=== PATIENT | male | born 1945 | race Caucasian/White ===

== ENCOUNTER → 2016-07-04 | Outpatient (CLI) | payer OTHER ==
[~2016-07-04] MED LIST: COUMADIN 2 MG TA2 M1 PO; COUMADIN 5 MG TA5 M1 PO; FLECAINIDE ACET50 M1 PO; IBUPROFEN 200200 M1 PO; LOVENOX40 MG/0.4 SUBQ; NAPROSYN500 MG PO; NORCO 10-325 T1 EACH PO; NORCO 5-325 TA1 EACH PO; PACERONE 200 M200 MG PO; PERCOCET 10-321 EACH PO; TOPROL XL25 MG PO
== END ==
LOC: RAD 08:59
DX: R05 Cough (principal)

== ENCOUNTER → 2016-10-20 | Outpatient (CLI) | payer OTHER | LOC: RAD 15:23 | DX: M48.06 Spinal stenosis, lumbar region (principal); M16.11 Unilateral primary osteoarthritis, right hip; M25.78 Osteophyte, vertebrae; M25.561 Pain in right knee ==

== ENCOUNTER → 2016-11-14 | Outpatient (CLI) | payer OTHER ==
[~2016-11-14] MED LIST changes: +PREDNISONE 10 M10 MG PO; +ROBAXIN 750 MG750 M1 PO
== END ==
LOC: MRI 09:27
DX: M47.896 Other spondylosis, lumbar region (principal); M54.16 Radiculopathy, lumbar region; M25.551 Pain in right hip

== ENCOUNTER → 2016-11-17 | Outpatient (CLI) | payer OTHER ==
[2016-11-17 13:16] VITALS: BP 136/82
== END | disposition home or self-care (01) ==
LOC: PAIN 13:04
DX: M54.5 Low back pain (principal); M79.604 Pain in right leg

== ENCOUNTER → 2016-11-21 | Outpatient (CLI) | payer OTHER ==
[~2016-11-21] VITALS: Ht 188 cm; Wt 104.7 kg
--- NOTE | ~2016-11-21 | HPC ---
[address] [address] PAIN MANAGEMENT CONSULTATION Name: NARANJORK LEWIS [id number] Admission: 11/21/16 Attend Phys: Rk Zuniga DO Discharge: Date of : 43 Report #: [id number] THIS REPORT FOR: //name// CC: Rk Esteban MD DATE OF SERVICE: 11/21/2016 CHIEF COMPLAINT: Back pain, right lower extremity pain and paresthesias. HISTORY OF PRESENT ILLNESS: As you know, the patient is a 71-year-old male who was apparently admitted to the hospital last week for low back pain and right lower extremity pain. He underwent a right intraarticular hip injection with Interventional Radiology, then was immediately referred to the pain clinic for evaluation. It was determined at that time the patient was suffering from likely lumbar radicular symptoms, but given the fact that he received an intraarticular hip injection just moments before he reported to the pain clinic, it was determined he would not be able to undergo that injection request. He was given instructions to return to our clinic in 2 weeks for evaluation. The patient indicates that he could not stand the pain any longer. He contacted his primary care physician, Dr. Tucker Esteban, who then contacted us to request that the patient be seen earlier to undergo epidural injection. He has been placed on today's schedule specifically to trial an epidural injection under fluoroscopic guidance. He is indicating pain today is aching and stabbing, places current pain score 5/10. He states pain is exacerbated with any type of activity, improves with nothing to date. He has undergone an intra-articular hip injection with Interventional Radiology for subjective hip pain with 0% improvement in symptoms. ALLERGIES: PENICILLIN. CURRENT MEDICATIONS: Methocarbamol 750 mg every 4 hours p.r.n. SOCIAL HISTORY: The patient denies tobacco use, denies IV or illicit drug use. He is accompanied by his who is present in the room today. IMAGING: No new imaging available. PHYSICAL EXAMINATION: VITAL SIGNS: Blood pressure 129/81, pulse 70, respiratory rate 20, unlabored. The patient is 100% on room air. Height 6 feet 2 inches tall, weight 230.8 pounds, BMI calculated 29.6. GENERAL: Well developed, well nourished, well hydrated 71-year-old male, appears stated age, placing current pain score 10/10. HEENT: Normocephalic, atraumatic. Pupils equal, round, reactive to light. [facility] [address] [place] [address] PAIN MANAGEMENT CONSULTATION Name: RK NARANJO Room #: REG [facility].#: [id number] Admission: 11/21/16 Attend Phys: Rk Zuniga DO Discharge: Date of : 43 Report #: [id number] Extraocular muscles are intact. Sclerae nonicteric, without injection. EXTREMITIES: Show no clubbing, no cyanosis, and no edema. MUSCULOSKELETAL: Lower extremity strength appears equal and symmetrical 5/5, though there is giveaway strength noted on the hip flexion and knee extension on the right when compared to left, this generates pain. Pain is located in a dermatomal distribution. There is no noted intrinsic hip pathology with Danial's test. Muscle bulk and tone symmetrical in lower extremities, intact to light touch from L1 through S2 dermatomes. Ankle clonus negative. Babinski is negative. Seated straight leg raising positive and supine straight leg raising positive on the right. ASSESSMENT: 1. Lumbar radiculopathy. 2. Lumbosacral spondylosis with radicular symptoms. PLAN: 1. The patient has returned to our clinic per the request of his primary care physician who has contacted us directly to have the patient undergo an epidural injection. The patient today indicates pain level of 10/10. He had an intra-articular hip injection just last week. This provided no improvement in symptoms. He underwent this procedure at the Interventional Radiology Department, though his physical exam would indicate lumbar radicular pain. The patient indicates no improvement in symptoms with this injection. He was then subsequently referred to our clinic where he saw one of the partners here at the clinic. They advised him that he could not undergo an epidural injection given the fact that he had just recently received a steroid injection. He was advised that 2-week return would be most appropriate. The patient apparently contacted his primary care physician, somewhat upset. This then prompted a re-referral back to our clinic. We have been requested by the primary team to trial an epidural injection despite the fact the patient recently had steroid exposure. We have agreed to have the patient undergo the procedure today, but did advise the patient of the significant risk with successive steroid exposures. The patient states he understood and wished to proceed. He states the pain is intolerable. 2. No medication changes were made at today's visit. The patient will continue current medical therapy as previously prescribed. 3. The patient will return to our clinic on an as needed basis for possible repeat epidural injection. He has established an appointment, it appears on 12/05/2016. PROCEDURE NOTE DESCRIPTION OF PROCEDURE: Lumbar epidural steroid injection under fluoroscopic guidance. [address] [address] PAIN MANAGEMENT CONSULTATION Name: RK NARANJO Room #: REG CL[facility] Felix#: [id number] Admission: 11/21/16 Attend Phys: Rk PierreFili Zuniga DO Discharge: Date of : 43 Report #: [id number] This is the first procedure of the first series that the patient is undergoing. After obtaining written consent, the patient was taken back to the fluoroscopy suite, placed in a prone position with pillow under the abdomen to decrease lumbar lordosis. The skin overlying the lumbosacral area was then prepped and draped in aseptic fashion. The L4-L5 vertebral interspace was then identified by AP fluoroscopy. The skin and subcutaneous tissue overlying the target site of injection was anesthetized with 3 mL 1% lidocaine. A 20-gauge 3-1/2 inch Tuohy needle was then advanced under fluoroscopic guidance towards the epidural space using a right paramedian approach. The epidural space was identified using loss of resistance to air technique. After negative aspiration for heme or cerebrospinal fluid, a total of 1 mL of Omnipaque was injected. A lumbar epidurogram was confirmed using both AP and lateral fluoroscopy. After negative aspiration for heme or cerebrospinal fluid, 5 mL of a solution containing 2 mL 40 mg per mL, 80 mg total triamcinolone, 3 mL lidocaine 1% was injected in increments.. Contrast spread was noted in posterior epidural space. The needle was then retracted approximately half way and needle tract flushed with 1 mL of 1% lidocaine. Needle was then removed. There were no apparent sensory or motor deficits in the lower extremity following the procedure. A sterile bandage was placed over the injection site. The heart rate, pulse, oximetry and blood pressure were continuously monitored after the procedure. There were no complications. The patient tolerated the procedure well and was carefully escorted to the recovery room in stable condition. There were no apparent complications. After meeting discharge criteria, the patient was then discharged home. By: [id number] Rk Zuniga DO /nt
[2016-11-21 14:01] VITALS: BP 129/81
== END | disposition home or self-care (01) ==
LOC: PAIN 07:00
DX: M54.16 Radiculopathy, lumbar region (principal); M47.816 Spondylosis without myelopathy or radiculopathy, lumbar region

== ENCOUNTER → 2016-12-05 | Outpatient (CLI) | payer OTHER ==
[~2016-12-05] VITALS: Ht 188 cm; Wt 111.1 kg
[2016-12-05 12:47] VITALS: BP 113/82
== END | disposition home or self-care (01) ==
LOC: PAIN 07:26
DX: M48.06 Spinal stenosis, lumbar region (principal); G89.29 Other chronic pain; Z88.0 Allergy status to penicillin

== ENCOUNTER → 2017-03-14 | Outpatient (CLI) | payer OTHER | LOC: ULTRA 08:15 → EDSTATUS 09:58 → ULTRA 10:00 | DX: N28.1 Cyst of kidney, acquired (principal) ==

== ENCOUNTER → 2019-05-22 | Outpatient (CLI) | payer OTHER | LOC: CAT 10:38 | DX: R05 Cough (principal); K80.20 Calculus of gallbladder without cholecystitis without obstruction ==

== ENCOUNTER → 2020-03-01 | Outpatient (CLI) | payer OTHER | LOC: MRI 09:04 | PROVIDERS: ATTEND Family Medicine | DX: M47.817 Spondylosis without myelopathy or radiculopathy, lumbosacral region (principal); M48.07 Spinal stenosis, lumbosacral region; I67.82 Cerebral ischemia; N28.1 Cyst of kidney, acquired; E88.2 Lipomatosis, not elsewhere classified ==

== ENCOUNTER → 2020-03-09 | Outpatient (CLI) | payer OTHER ==
[~2020-03-09] VITALS: Ht 193 cm; Wt 116.8 kg
[~2020-03-09] MED LIST changes: +[UNRECOGNIZED DRUG - OTHER] PO
--- NOTE | ~2020-03-09 | HPC ---
[facility] [place] [address] PAIN MANAGEMENT CONSULTATION Name: RK NARANJO Room #: REG [facility] M..#: [id number] Admission: 03/09/20 Attend Phys: Rk Zuniga DO Discharge: Date of : 43 Report #: [id number] THIS REPORT FOR: cc: Tucker Esteban MD, Neal A. MD Johnson, James E. DO ~ CC: Malgorzata Smith ANP Rk Esteban DATE OF SERVICE: 03/09/2020 REFERRING PHYSICIAN: LUNA Connelly CHIEF COMPLAINT: Right low back pain. HISTORY OF PRESENT ILLNESS: As you know, the patient is a 74-year-old male who reports chronic low back symptoms that led to a L3-L4 fusion with instrumentation. This was done by Dr. Montalvo on 04/24/2018. This was done due to ongoing leg pain and low back symptoms. The patient did have resolution of the majority of his symptoms, but then began to experience increasing right low back pain. He has trialed conservative treatment options including [id number]-[id number] medications. He has even trialed prescription medications without benefit. He sought further evaluation through his neurosurgery team to discuss options for treatment. He was seen by nurse practitioner, Candi Smith on 03/03/2020. It was determined at that time that surgical option should be the last resort and the patient was referred to pain management to discuss treatment options for right low back symptoms. The patient indicates today a pain level of 8/10. He states his pain is exacerbated with activities of lifting, bending and walking long distances. Pain is improved with sitting and lying down. He indicates no specific injury or trauma that may have led to symptom development, but does indicate that directly after the surgery, he began experiencing increasing right low back pain. The patient states that the pain has begun to interfere with daily activities to the point that he is unable to participate in normal daily chores around his home. He has been referred to our service to discuss treatment options for right axial back pain. PAST MEDICAL HISTORY: 1. Atrial fibrillation with ablation. 2. Osteoarthritis. 3. Hearing loss. 4. Tinnitus. 5. Right low back pain. 6. Sinusitis. [address] [address] PAIN MANAGEMENT CONSULTATION Name: MARCELLARK [facility] [id number] Admission: 03/09/20 Attend Phys: Rk Zuniga DO Discharge: Date of : 43 Report #: [id number] PAST SURGICAL HISTORY: 1. L3-L4 lumbar decompression. 2. Total shoulder replacement. 3. Total hip arthroplasty. 4. Eye orbit surgery. 5. Tonsillectomy and adenoidectomy. 6. Right L3-L4 laminectomy with right L3-L4 unilateral instrumentation. SOCIAL HISTORY: The patient denies current tobacco use. He denies IV or illicit drug use. He drinks 1-2 alcohol beverages per week. He is accompanied by his significant other present in room today. He is retired. ALLERGIES: PENICILLIN. CURRENT MEDICATIONS: Gabapentin 300 mg 1 tab p.o. t.i.d. IMAGING: MRI lumbar spine obtained 03/01/2020 shows spondylosis extending throughout the lumbar spine with degenerative changes typical for age. There are postoperative changes noted at the L3-L4 level. Cystic changes noted on the kidneys measuring up to 8 mm in length on the right kidney. There are disk protrusions at L2-L3, moderate posterior facet degenerative changes, broad-based disk protrusion at L3-L4. At L4-L5, there is disk bulging, severe left and uxaf-ct-ubdrhxbr right neural foraminal stenosis, severe facet arthropathy changes. At the L5-S1 level, minimal disk bulge, bhpkqnep-vg-vbcryp left and moderate right neural foraminal stenosis with severe facet arthropathy. PQRS: The patient has known osteoarthritic changes of the lumbar spine, bilateral hips, status post total hip arthroplasty. He denies rheumatoid arthritis. He is placing pain score at 8/10. He is not a fall risk, has not had a fall in last 3 months. He is not on blood thinners, nor is he treated for hypertension. He is not on chronic opioids and has a low opioid addiction potential. Pain impact is 48/70, severe interference of daily activities secondary to pain. PHYSICAL EXAMINATION: VITAL SIGNS: Blood pressure 128/86, pulse is 79, respiratory rate 16 and unlabored, the patient is 98% on room air. Height 6 feet 4 inches tall, weight 257.6 pounds, BMI calculated 31.4. GENERAL: Well-developed, well-nourished, well-hydrated 74-year-old male, appears stated age. He is in no acute distress. He is awake, alert and oriented x 3. Current pain score is 8/10. HEENT: Normocephalic, atraumatic. Pupils equal, round and reactive. Extraocular muscles are intact. NEUROLOGIC: Speech is fluent. Hearing is decreased. He appears to be a good historian. [facility] [address] [place] [address] PAIN MANAGEMENT CONSULTATION Name: RK NARANJO Room #: REG [facility].#: [id number] Admission: 03/09/20 Attend Phys: Rk Zuniga DO Discharge: Date of : 43 Report #: [id number] LUNGS: Clear, no wheeze, rhonchi or rales. CARDIOVASCULAR: Regular. No appreciable gallop, no rub. ABDOMEN: Soft, nontender, nondistended, normoactive bowel sounds. EXTREMITIES: Show no clubbing, no cyanosis and no edema. MUSCULOSKELETAL: Lower extremity strength equal and symmetrical 5/5, intact to light touch from L1 through S2 dermatomes. Seated straight leg raising negative. Supine straight leg raising is negative. Jennifer's test is negative. Modified Gaenslen's positive for axial low back pain directly over the L4-L5, L5-S1 facet joints with the greater tenderness over the L5-S1. There is minimal tenderness over the SI joint on the right, negative left. Gait appears mildly antalgic favoring right lower extremity over left. Pain is elicited from standing and walking and is resolved with seated position. ASSESSMENT: 1. Lumbosacral spondylosis without radiculopathy. 2. Severe facet arthropathy of the lumbar spine. 3. Mild sacroiliac joint dysfunction. 4. Chronic intractable pain. PLAN: 1. Based on today's physical exam and history the patient has provided, the description the patient uses in regards to pain as well as the location of symptoms and the provocating factors that exacerbate symptoms as well as those that alleviate his symptoms including sitting down, it would be most consistent with facet arthropathy of the lumbar spine. He does have some mild SI joint tenderness, though he reports no significant pain over the area. His pain is above and medial to the SI joint consistent with the facets. We discussed with the patient the following treatment options. We discussed physical therapy, stretching exercises and core strengthening as a treatment option. This would be quite beneficial for the patient. He continues to maintain [address] [place], [place]. Even though he is active, I do not feel he has done his best at strengthening appropriately. We discussed medication management with the addition of a nonsteroidal anti-inflammatory in conjunction with his current medication therapy. We discussed intraarticular facet injections, medial branch nerve blocks and radiofrequency lesioning as a treatment option. The patient also wished to discuss surgical options, though I do not feel at this point that is necessary. After reviewing risks and benefits of all proposed treatment options, the patient chose to move forward with intraarticular facet injections. 2. The patient was advised risks and benefits of intraarticular facet injections. These risks include but are not necessarily limited to bleeding, bruising, infection, worsening pain, no relief of pain, also risk of temporary or permanent muscle weakness, temporary or permanent nerve damage, possible paralysis and . The patient states understood and wished to proceed. [address] [address] PAIN MANAGEMENT CONSULTATION Name: MARCELLARK Room #: REG [facility] Fili.#: [id number] Admission: 03/09/20 Attend Phys: Rk Zuniga DO Discharge: Date of : 43 Report #: [id number] 3. No medication changes made at today's visit. The patient will continue current medical therapy as prior prescribed. 4. We will see the patient back in followup visit on an as needed basis for possible next in the series of intraarticular facet injections. If this is successful at alleviating symptoms, but he has rapid recurrence of pain, I would recommend moving forward with medial branch nerve blocks, radiofrequency lesioning for a more definitive treatment. The patient is agreeable. PROCEDURE NOTE DESCRIPTION OF PROCEDURE: Right L4-L5, L5-S1 intraarticular facet injections under fluoroscopic guidance. This is the first procedure of the first series that the patient is undergoing. After obtaining written consent, the patient was taken back to the fluoroscopy suite and placed in a prone position with a pillow under the abdomen to decrease the lumbar lordosis and to facilitate needle entry into the facet joints. The skin overlying the lumbosacral area was prepped and draped in an aseptic fashion. AP and lateral fluoroscopic imaging was obtained. Optimal position of the fluoroscope occurred when the joint line was first visualized. The facet joints were identified radiographically directed adjacent to the superior articular process of the caudad vertebrae. The skin overlying the target sites of injection was anesthetized using 3 mL of 1% lidocaine. A 22-gauge 3-1/2 inch spinal needle with a bent tip was advanced towards the L4-L5 and L5-S1 facet joints on the right side under fluoroscopic guidance. The firm posterior capsule had its characteristic feel and the needle was advanced a few additional millimeters beyond the joint capsule into the joint space, but not into the articular cartilage. After the joint space was entered and aspiration was negative for heme or CSF, 0.2 mL of Omnipaque was injected demonstrating a characteristic facet arthrogram. After negative aspiration for heme or CSF, 1.5 mL of a solution containing 1 mL 40 mg per mL, 40 mg total triamcinolone and 0.5 mL bupivacaine 0.5% was slowly injected at each of 2 facets. The needles was then removed. There were no complications. The patient tolerated the procedure well and was carefully escorted to the recovery room in stable condition. The VAS was 8/10 before the procedure and 0/10 ten minutes after the procedure. After meeting discharge criteria, the patient was discharged home. By: [id number] Rk Zuniga DO /ramon
[2020-03-09 13:51] VITALS: BP 128/86
--- NOTE | 2020-03-09 14:44 | NUR ---
Pain Clinic Assessment: 1. History of Osteoarthritis: HIPS SPINE History of Rheumatoid Arthritis: Not Applicable 2. Height: 6 ft. 4 in. 193.0 cm. Weight: 257.6 lb. oz. 116.847 kg. Patient's BMI: 31.4 3. Vital Signs: BP: 128/86 Pulse: 79 Resp: 16 Temp: 02 Sat: 98 ECG Mon: 4. Pain Intensity: 8 5. Fall Risk: Dizziness: N Needs help standing or walking: N Fallen in the last 3 months: N Fall risk comments: 6. Patient on Blood Thinner: None 7. History of Hypertension: N 8. Opioid Therapy greater than 6 weeks: N Opiate Contract Signed: 9. Risk Assessment Tool Provided: 0-LOW RISK 10. Functional Assessment Tool: 11. Recreational Drug Use: Never Drug Type: Tobacco Use: Never Smoker Tobacco Type: Amount or Packs/day: How Many Years: Alcohol Use: Yes Frequency: Weekly Quant: 1-2 DRINKS
== END | disposition home or self-care (01) ==
LOC: PAIN 06:51
PROVIDERS: ATTEND Anesthesiology Pain Medicine
DX: M54.5 Low back pain (principal); M47.817 Spondylosis without myelopathy or radiculopathy, lumbosacral region; G89.29 Other chronic pain; M53.3 Sacrococcygeal disorders, not elsewhere classified; I48.91 Unspecified atrial fibrillation; M19.90 Unspecified osteoarthritis, unspecified site; Z88.0 Allergy status to penicillin; Z79.899 Other long term (current) drug therapy; Z98.890 Other specified postprocedural states; Z72.89 Other problems related to lifestyle

== ENCOUNTER → 2020-03-17 | Outpatient (CLI) | payer OTHER ==
[~2020-03-17] VITALS: Ht 193 cm; Wt 116.6 kg
[2020-03-17 15:07] VITALS: BP 140/78
--- NOTE | 2020-03-17 15:23 | NUR ---
Pain Clinic Assessment: 1. History of Osteoarthritis: HIPS SPINE History of Rheumatoid Arthritis: Not Applicable 2. Height: 6 ft. 4 in. 193.0 cm. Weight: 257.0 lb. oz. 116.575 kg. Patient's BMI: 31.3 3. Vital Signs: BP: 140/78 Pulse: 62 Resp: 14 Temp: 02 Sat: 98 ECG Mon: 4. Pain Intensity: 7 5. Fall Risk: Dizziness: N Needs help standing or walking: N Fallen in the last 3 months: N Fall risk comments: 6. Patient on Blood Thinner: None 7. History of Hypertension: N 8. Opioid Therapy greater than 6 weeks: N Opiate Contract Signed: 9. Risk Assessment Tool Provided: 0-LOW RISK 10. Functional Assessment Tool: 11. Recreational Drug Use: Never Drug Type: Tobacco Use: Never Smoker Tobacco Type: Amount or Packs/day: How Many Years: Alcohol Use: Yes Frequency: Quant:
--- NOTE | 2020-04-06 10:45 | HPC ---
[facility] [address] [place] [address] PAIN MANAGEMENT CONSULTATION Name: RK NARANJO Room #: REG [facility]Jacki.#: [id number] Admission: 03/17/20 Attend Phys: Rk Zuniga DO Discharge: Date of : 43 Report #: [id number] CC: Rk Esteban DATE OF SERVICE: 03/17/2020 CHIEF COMPLAINT: Low back pain. HISTORY OF PRESENT ILLNESS: As you know, the patient is a 74-year-old male with longstanding history of right low back pain, status post instrumentation and fusion of the right L3-L4 interspace. He continues to experience L4-L5 and L5-S1 facet arthropathy pain on the right side for which he places pain score at 7/10. He returns today in followup visit to undergo medial branch blocks in hopes of improving pain. He has undergone intra-articular facet injections on 03/09/2020 with good improvement in symptoms, but unfortunately only short-lived. He returns today for medial branch blocks with plans to move forward with radiofrequency lesioning if this is effective. The patient indicates no new injury or trauma that may have led to symptom continuation. ALLERGIES: PENICILLIN. CURRENT MEDICATIONS: No current medications. IMAGING: No new imaging available. PQRS: The patient has known arthritic changes of the lumbar spine. He is placing pain intensity today at 7/10. He is not a fall risk, has not had a fall in last 3 months. He is not on blood thinners, nor is he treated for hypertension. He is not on chronic opioids, has a low opiate addiction potential. Pain impact reported at 48/70, severe interference of daily activities secondary to pain. PHYSICAL EXAMINATION: VITAL SIGNS: Blood pressure 140/78, pulse 62, respiratory rate 14 and unlabored. The patient is 98% on room air, height 6 feet 4 inches tall, weight 257 pounds, BMI calculated 31.3. GENERAL: Well-developed, well-nourished, well-hydrated 74-year-old male appearing stated age, pain is rated today at 7/10. HEENT: Normocephalic, atraumatic. Pupils equal, round and reactive. Speech is fluent. The patient does wear hearing aids. EXTREMITIES: Show no clubbing, no cyanosis, no edema. MUSCULOSKELETAL: Lower extremity strength is equal and symmetrical 5/5, intact to light touch from L1 through S2 dermatomes. Seated straight leg raising negative. Supine straight leg raising negative. Jennifer's test is negative. Modified Gaenslen's positive for axial low back pain. Lumbar provocation testing is met with increased pain on the right side. ASSESSMENT: 1. Lumbosacral spondylosis without radiculopathy. 2. Facet arthropathy of the lumbar spine. 3. Chronic intractable pain. PLAN: 1. 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 Unfortunately, this has exacerbated his symptoms. He returns today for medial branch blocks with plans to move forward with radiofrequency lesioning if successful. He returns for the first in a series of medial branch blocks under fluoroscopic guidance. 2. No medication changes made at today's visit. The patient will continue current medical therapy as prior prescribed. 3. We plan to see the patient back in followup visit for radiofrequency lesioning of the medial branch nerves of the lumbar spine given the efficacy of the immediate relief of pain with the medial branch nerve block today. PROCEDURE NOTE: DESCRIPTION OF PROCEDURE: Right L3, L4, L5 medial branch blocks under fluoroscopic guidance. This is the first of 2 diagnostic medial branch blocks on the right side that the patient is undergoing. After obtaining written consent, the patient was taken back to the fluoroscopy suite and placed in a prone position on the fluoroscopy table with a pillow under the abdomen to decrease the lumbar lordosis. The skin overlying the lumbosacral area was prepped and draped in an aseptic fashion. The L4 transverse process corresponding to L3 medial branch never and L5 transverse process corresponding to the L4 medial branch nerve on the right side was visualized under AP fluoroscopy. The skin and subcutaneous tissue overlying the target sites of injection were anesthetized using 2 mL of 1% lidocaine. A 22 gauze 3-1/2 inch spinal needle with a bent tip was advanced under fluoroscopic guidance using a superior to inferior and lateral to medial approach to the dorsal, superior and medial aspect of the base of the transverse processes. The needles were then directed ventral, medial and caudad to reach the target locations. An oblique view facilitated needle placement with properly positioned needle in the middle of the "eye" of the Judah dog for the medial branch block. At each site the needle rested on periosteum. After negative aspiration for heme or CSF, 0.5 mL of Omnipaque dye was injected at each site under live fluoroscopy, demonstrating absence of vascular uptake. After negative aspiration for heme or CSF, 1 mL of bupivacaine 0.5% was slowly injected at each site to avoid forcing the solution away from the target points. The needle was then removed. The L5 dorsal ramus block on the right side was performed using a slightly oblique approach under fluoroscopic guidance, placing the needle within the groove between the sacral site and the superior articular process of S1. The needle rested on periosteum. After negative aspiration for heme or CSF, 0.5 mL of Omnipaque dye was injected at under live fluoroscopy, demonstrating absence of vascular uptake. After negative aspiration for heme or CSF, 1 mL of bupivacaine 0.5% was slowly injected to avoid forcing the solution away from the target point. The needle was then removed. Sterile bandages were placed over the injection site. There were no apparent complications. The patient tolerated the procedure well and was carefully escorted to the recovery room in stable condition. The VAS was 7/10 before the procedure and 1/10, 10 minutes after the procedure. After meeting discharge criteria, the patient was discharged home. <ELECTRONICALLY SIGNED> By: Rk Zuniga DO 04/06/20 [id number] Rk Zuniga, /nt
== END | disposition home or self-care (01) ==
LOC: PAIN 14:04
PROVIDERS: ATTEND Anesthesiology Pain Medicine
DX: M47.816 Spondylosis without myelopathy or radiculopathy, lumbar region (principal); M47.817 Spondylosis without myelopathy or radiculopathy, lumbosacral region; G89.29 Other chronic pain; Z98.890 Other specified postprocedural states; Z79.899 Other long term (current) drug therapy; Z88.0 Allergy status to penicillin

== ENCOUNTER → 2020-03-18 | Outpatient (CLI) | payer OTHER ==
[2020-03-18 10:30] LABS: CREATININE 1.2 mg/dL (0.7-1.3)
== END ==
LOC: MRI 09:37
PROVIDERS: ATTEND Nurse Practitioner Adult Health
DX: J32.3 Chronic sphenoidal sinusitis (principal); N28.9 Disorder of kidney and ureter, unspecified

== ENCOUNTER → 2020-03-23 | Outpatient (CLI) | payer OTHER ==
[~2020-03-23] VITALS: Ht 193 cm; Wt 116.6 kg
--- NOTE | ~2020-03-23 | HPC ---
[facility] [address] [place] [address] PAIN MANAGEMENT CONSULTATION Name: RK NARANJO Room #: REG [facility]..#: [id number] Admission: 03/23/20 Attend Phys: Rk Zuniga DO Discharge: Date of : 43 Report #: [id number] CC: Rk Esteban MD DATE OF SERVICE: 03/23/2020 REFERRING PHYSICIAN: Tucker Esteban MD CHIEF COMPLAINT: Right axial back pain. HISTORY OF PRESENT ILLNESS: As you know, the patient is a pleasant 74-year-old male who has successfully completed medial branch blocks of the lower lumbar spine on the right side to address lumbar radicular symptoms. Most recent medial branch blocks gave 80% improvement in overall pain lasting for nearly 2-1/2 to 3 hours with slow and progressive return of symptoms. This is typical for this diagnostic block. He returns today in followup visit per the request of his neurosurgery team to undergo radiofrequency lesioning of the medial branch nerves of the right lower lumbar spine. The patient places current pain score at 7/10. ALLERGIES: PENICILLIN. CURRENT MEDICATIONS: Gabapentin 300 mg t.i.d. SOCIAL HISTORY: The patient denies current tobacco use. He denies IV or illicit drug use. Admits to 1-2 alcohol beverages per week. He is accompanied by his significant other present in room today. IMAGING: No new imaging available. PQRS: The patient has known arthritic changes of the lumbar spine, bilateral hips and knees. No rheumatoid arthritis. He is placing current pain score 7/10. He is not a fall risk, has not had a fall in last 3 months. He is not on blood thinners, nor has he treated for hypertension. He is not on chronic opioids, has a low opiate addiction potential. Pain impact is 48/70, severe interference of daily activities secondary to pain. PHYSICAL EXAMINATION: VITAL SIGNS: Blood pressure 136/76, pulse 72, respiratory rate 14 and unlabored. The patient is 97% on room air, height 6 feet 4 inches tall, weight 257 pounds, BMI calculated 31.3. GENERAL: Well-developed, well-nourished, well-hydrated 74-year-old male appearing stated age, pain is rated today 7/10. HEENT: Normocephalic, atraumatic. Pupils equal, round and reactive. Speech is fluent. Hearing is decreased. The patient is wearing hearing aids. Skin shows no rashes, lesions or ulcerations. EXTREMITIES: Show no clubbing, no cyanosis, no edema. MUSCULOSKELETAL: Lower extremity strength equal and symmetrical today 5/5, intact to light touch from L1 through S2 dermatomes. Straight leg raising, both in the seated and supine position negative. Jennifer's test is negative. Well-healed surgical scar over the lumbar spine. Modified Gaenslen's positive for axial back pain over the facet joints at L4-L5 and L5-S1 on the right. ASSESSMENT: 1. Lumbosacral spondylosis without radiculopathy. 2. Severe facet arthropathy of the lumbar spine. 3. Mild sacroiliac joint dysfunction. 4. Chronic intractable pain. PLAN: 1. The patient returns today in followup visit to undergo radiofrequency lesioning of the right L3, L4 and L5 medial branch nerves. The patient and I discussed at length of the procedure itself and how it will be performed. We also discussed the risks and the benefits of the procedure. These risks include but are not necessarily limited to bleeding, bruising, infection, worsening pain, no relief of pain, also risk of temporary or permanent muscle weakness, temporary or permanent nerve damage, possible paralysis and . The patient states understood and wished to proceed. 2. No medication changes made at today's visit. The patient will continue current medical therapy as prior prescribed. 3. We plan to see the patient back in followup visit on an as needed basis for possible treatment for other pain sources. We are hopeful the patient will see good and prolonged benefit with today's radiofrequency lesioning. PROCEDURE NOTE DESCRIPTION OF PROCEDURE: Right L3, L4, L5, lumbar medial branch radiofrequency ablations. The procedure was explained. Informed consent was obtained from the patient. The patient was informed of the risks of the procedure including infection, bleeding, nerve damage, failure to produce pain, pain relief and postoperative discomfort lasting for several weeks. The patient was then taken to the fluoroscopy suite, placed in prone position with pillow under abdomen to decrease lumbar lordosis. Skin overlying the lumbosacral area then prepped and draped in aseptic fashion. AP imaging of the lumbar spine was used to identify the L2 through L5 vertebral bodies and the sacral ala. The target location of the right side of the L4 transverse process corresponding the L3 medial branch nerve and the L5 transverse process corresponding the L4 medial branch nerve on the right side was established. Using a 27-gauge, 1-1/4 inch needle, skin wheals were placed at the junction of the transverse process and the superior articular process with 1 mL of 1% lidocaine. We were careful to only anesthetize skin and not the deep tissue. The radiofrequency lesioning needles were then advanced under fluoroscopic guidance using a superior, inferior, lateral to medial approach to the dorsal superior and medial aspect of the base of the transverse processes. Morley were then directed caudad to reach the target locations. An oblique view facilitated needle placement with properly positioned needles in the middle of the "eye" of the Judah dog. At each site, needles rested on periosteum. Touching the bone assured the needles were not placed too deeply. Radiofrequency lesioning of the L5 medial branch nerve on the right side was performed using a superior, inferior, lateral to medial approach under fluoroscopic guidance, placing the needle within the groove of the sacral ala and the superior articular process of S1. Needle rested on periosteum. Stimulation at each level was done once the cannulas were in position. Sensory stimulation was performed at 0.4, 0.2 and 0.3 with impedance of 143, 410 and 382 at 50 Hz for the L3, L4, L5 medial branch nerves respectively. Good stimulation of the lumbar and buttock region was elicited indicating correct alignment with the posterior primary ramus. Absence of lower motor fasciculation was noted at 3 volts 2 Hz stimulation during testing of the L3, L4, L5 medial branch nerves respectively. Following this, affirmation of dissociation between sensory and motor stimulation, negative aspiration was also noted to be for both heme or cerebrospinal fluid at each level. Next, 1 mL bupivacaine 0.5% was injected. After a 90-second delay, lesions were performed at a temperature of 80 degrees Celsius for a total of 90 seconds. After the needle tips had cooled, 1 mL of solution containing 1 mL 40 mg per mL, 40 mg total triamcinolone along with 3 mL bupivacaine 0.5% injected slowly. Morley were then sequentially removed. At the end of the procedure, the patient was noted to be able to purposely move all 4 extremities. Sterile bandages were placed over each of the injection sites. The patient tolerated procedure well, carefully escorted to recovery room in stable condition. No apparent complications. After meeting discharge criteria, the patient discharged home. By: [id number] Rk Zuniga DO /nt
[2020-03-23 14:18] VITALS: BP 136/76
--- NOTE | 2020-03-23 14:38 | NUR ---
Pain Clinic Assessment: 1. History of Osteoarthritis: HIPS SPINE History of Rheumatoid Arthritis: Not Applicable 2. Height: 6 ft. 4 in. 193.0 cm. Weight: 257.0 lb. oz. 116.575 kg. Patient's BMI: 31.3 3. Vital Signs: BP: 136/76 Pulse: 72 Resp: 14 Temp: 02 Sat: 97 ECG Mon: 4. Pain Intensity: 7 5. Fall Risk: Dizziness: N Needs help standing or walking: N Fallen in the last 3 months: N Fall risk comments: 6. Patient on Blood Thinner: None 7. History of Hypertension: N 8. Opioid Therapy greater than 6 weeks: N Opiate Contract Signed: 9. Risk Assessment Tool Provided: 0-LOW RISK 10. Functional Assessment Tool: 11. Recreational Drug Use: Never Drug Type: Tobacco Use: Never Smoker Tobacco Type: Amount or Packs/day: How Many Years: Alcohol Use: Yes Frequency: Quant:
== END | disposition home or self-care (01) ==
LOC: PAIN 06:54
PROVIDERS: ATTEND Anesthesiology Pain Medicine
DX: M54.5 Low back pain (principal); M47.816 Spondylosis without myelopathy or radiculopathy, lumbar region; M47.817 Spondylosis without myelopathy or radiculopathy, lumbosacral region; M53.3 Sacrococcygeal disorders, not elsewhere classified; G89.29 Other chronic pain; I10 Essential (primary) hypertension; M19.90 Unspecified osteoarthritis, unspecified site; M46.38 Infection of intervertebral disc (pyogenic), sacral and sacrococcygeal region; Z98.890 Other specified postprocedural states; Z79.899 Other long term (current) drug therapy; Z88.0 Allergy status to penicillin

== ENCOUNTER → 2020-08-18 | Outpatient (CLI) | payer OTHER | LOC: MRI 12:16 | PROVIDERS: ATTEND Family Medicine | DX: M51.36 Other intervertebral disc degeneration, lumbar region (principal); M54.41 Lumbago with sciatica, right side; G89.29 Other chronic pain; M48.07 Spinal stenosis, lumbosacral region ==

== ENCOUNTER → 2020-09-03 | Outpatient (CLI) | payer OTHER | LOC: ULTRA 10:03 | PROVIDERS: ATTEND Family Medicine | DX: K80.20 Calculus of gallbladder without cholecystitis without obstruction (principal); N28.1 Cyst of kidney, acquired ==

== ENCOUNTER → 2020-11-05 | Outpatient (CLI) | payer OTHER ==
[2020-11-05 09:47] LABS: CREATININE 1.1 mg/dL (0.7-1.3)
== END ==
LOC: MRI 09:17
DX: M47.26 Other spondylosis with radiculopathy, lumbar region (principal); M43.26 Fusion of spine, lumbar region; N28.1 Cyst of kidney, acquired; M96.1 Postlaminectomy syndrome, not elsewhere classified

== ENCOUNTER → 2021-01-14 | Outpatient (CLI) | payer OTHER | LOC: CAT 08:39 | PROVIDERS: ATTEND Neurological Surgery | DX: M51.36 Other intervertebral disc degeneration, lumbar region (principal); M47.816 Spondylosis without myelopathy or radiculopathy, lumbar region; M51.37 Other intervertebral disc degeneration, lumbosacral region; N28.1 Cyst of kidney, acquired; Z96.643 Presence of artificial hip joint, bilateral; I70.0 Atherosclerosis of aorta; K57.30 Diverticulosis of large intestine without perforation or abscess without bleeding; M48.061 Spinal stenosis, lumbar region without neurogenic claudication; M48.07 Spinal stenosis, lumbosacral region ==

== ENCOUNTER → 2021-03-01 | Outpatient (CLI) | payer OTHER ==
[~2021-03-01] VITALS: Ht 193 cm; Wt 111.4 kg
--- NOTE | ~2021-03-01 | HPC ---
[facility] [address] [address] PAIN MANAGEMENT CONSULTATION Name: RK NARANJO LICO Room #: REG [facility] SandraFiliSherry.#: [id number] Admission: 03/01/21 Attend Phys: Rk Zuniga DO Discharge: Date of : 44 Report #: [id number] THIS REPORT FOR: cc: Tucker Esteban MD, Neal A. MD Johnson, James E. DO ~ cc: Tucker Esteban MD DATE OF SERVICE: 03/01/2021 REFERRING PHYSICIAN: Tucker Esteban MD CHIEF COMPLAINT: Right axial back pain. HISTORY OF PRESENT ILLNESS: As you know, the patient is a pleasant 75-year-old male who has had ongoing right axial back pain for an extended period of time. The patient has had fusion at the L3-L4 level with instrumentation. He has had pain since that time. He has trialled radiofrequency lesioning of the medial branch nerves above and below his fusion site. He has undergone epidural injections and medication management without benefit. He sought further evaluation through another pain clinic who repeated radiofrequency lesioning but attempted to go higher end of the lumbar area. No benefit in symptoms. He returns today in followup visit to discuss recent CT of the pelvis, MRI of the lumbar spine and to discuss whether or not treatment options might be available to address those issues. The patient has forwarded the CT and MRI information to us initially. We were to review this information for the patient shows today. He returns today in followup visit reporting pain score of 4-7/10. ALLERGIES: PENICILLIN. CURRENT MEDICATIONS: None. SOCIAL HISTORY: The patient denies current tobacco use. Denies IV or illicit drug use. Admits 2 alcohol beverages per week. He is accompanied by his significant other, present in room today. IMAGING: CT of the pelvis obtained on 01/14/2021 and an MRI of the lumbar spine obtained on 01/14/2021. PQRS: The patient has known arthritic changes of lumbar spine, bilateral hips and knees. No rheumatoid arthritis. He is placing current pain intensity at 4-7/10. He is not at fall risk, does not have fall in last 3 months. He is not on blood thinners nor is he treated with hypertension. He is not on chronic opioids, has a low opioid addiction potential. Pain impact is 48/70, severe interference of daily activities secondary to pain. PHYSICAL EXAMINATION: [facility] [address] [place] [address] PAIN MANAGEMENT CONSULTATION Name: MARCELLARK LICO Room #: REG KATIANAVan Felix#: [id number] Admission: 03/01/21 Attend Phys: Rk Zuniga DO Discharge: Date of : 43 Report #: [id number] VITAL SIGNS: Blood pressure 139/79, pulse 70, respiratory rate 18 and unlabored. The patient is 99% on room air, height 6 feet 4 inches tall, weight 245.6 pounds, BMI calculated 29.9. GENERAL: Well-developed, well-nourished, well-hydrated 75-year-old male appearing stated age, pain is rated anywhere from 4-7/10. HEENT: Normocephalic, atraumatic. Pupils are round and responsive. He is wearing a mask in compliance with COVID-19 regulations. Hearing is decreased. He is wearing hearing aids. EXTREMITIES: Show no clubbing, no cyanosis and no edema. MUSCULOSKELETAL: Lower extremity strength remains symmetrical 5/5. Muscle bulk and tone is equal and symmetrical. There is well-healed surgical scar over the lumbar spine consistent with his fusion at L3-L4. Seated straight leg raising negative. Supine straight leg raising is negative. Jennifer's test is negative. Lumbar provocation testing is met with increase in right axial back pain with radiation towards the flank pain. ASSESSMENT: 1. Chronic right back pain. 2. Lumbosacral spondylosis. 3. Severe facet arthropathy of lumbar spine. 4. Possible lumbar radiculopathy. 5. Chronic intractable pain. PLAN: 1. The patient returns today in followup visit to review recent imaging. He has undergone CT of the pelvis without contrast and underwent an MRI of the lumbar spine to further evaluate the patient. I have located four different possible generators of the patient's symptoms. The following was of concern. We discussed the findings in the recent CT of the pelvis, which shows right-sided pedicle screws at the L3-L4 level. The fact that the patient had pain directly after implantation of the screws would indicate that the screw or screws along with fusion katie may be the source of his symptoms. These typically can cause symptoms very similar to the patient has been experiencing and can be chronic in nature. The patient indicates that his symptoms are continuous with acute exacerbations, which does fit with the possibility that the screws themselves may be causing irritation. This in conjunction with the fact that his symptoms were directly after the implantation of the fusion instrumentation would indicate that, that would be the number 1 potential source of symptoms. It was also noted on the CT of the pelvis, he had a large right renal cyst that is not fully evaluated, this could be a possible source of the symptoms. It does overlie similar area and can be causing pain from stretch receptors of the cortex of the kidney. A possible referral to Nephrology would be appropriate. This cyst had not been seen in the past, maybe only transient in nature, but should be evaluated further if it is believed the symptoms may be related to that issue. 2. Review of the MRI of the lumbar spine obtained on 01/14/2021 shows bilateral [facility] [address] [place] [address] PAIN MANAGEMENT CONSULTATION Name: RK NARANJO Room #: REG KYLE Felix#: [id number] Admission: 03/01/21 Attend Phys: Rk Zuniga DO Discharge: Date of : 43 Report #: [id number] subarticular stenosis due to bilateral facet arthrosis at the L1-L2 level. This could be the source of the patient's symptoms, the distribution of pain along a dermatomal distribution on the right. This would be the third possible cause of the patient's symptoms. Final source of the symptoms could be the severe medial right neuroforaminal stenosis underlying the fusion at L3-L4 level and this could be the source of his ongoing symptoms. This would have to be evaluated by Neurosurgery. After reviewing these findings and discussing the different possible source of the symptoms, the patient chose to address #3, the bilateral subarticular zone stenosis with lumbar epidural injection. 3. The patient was advised risks and benefits of a lumbar epidural injection. These risks include but are not necessarily limited to bleeding, bruising, infection, worsening pain, no relief of pain, also risk of temporary or permanent muscle weakness, temporary or permanent nerve damage, possible paralysis and . The patient states understood and wished to proceed. 4. No medication changes made at today's visit. The patient will continue current medical therapy as prior prescribed. 5. We will plan to see the patient back in followup visit to address efficacy of today's injection and determine if next in the series would be recommended. If the patient notes no improvement in symptoms with this injection, this would leave either the pedicle screws as a source of symptoms, the large right renal cyst or the severe right neuroforaminal stenosis as the source of pain. This will help determine the sources and further potentially improving pain relief. PROCEDURE NOTE DESCRIPTION OF PROCEDURE: Right paramedian epidural steroid injection under fluoroscopic guidance. After obtaining written consent, the patient was taken back to fluoroscopy suite, placed in prone position with pillow under abdomen to decrease lumbar lordosis. Skin overlying lumbosacral area prepped and draped in aseptic fashion. The lumbar intervertebral spaces were identified by AP fluoroscopy. Skin and subcutaneous tissue overlying target site injection anesthetized with 3 mL 1% lidocaine. A 20 gauge 3-1/2 inch Tuohy needle advanced under fluoroscopic guidance using a right paramedian approach entering the interspace at the L2-L3 level to address the subarticular zone at the L1-L2 level. Needle was advanced until reaching the epidural space. The epidural space identified with loss of resistance to air technique. After negative aspiration for heme, 1 mL of Omnipaque injected. Lumbar epidurogram confirmed using both AP and lateral fluoroscopy. After negative aspiration for heme or cerebrospinal fluid, 5 mL solution containing 2 mL 40 mg per mL 80 mg total triamcinolone along with 3 mL of 1% injected slowly. Needle retracted group home flushed with 1 mL of 1% lidocaine, then removed. Sterile bandage placed over injection site. No new motor deficits present in lower extremity following procedure. [address] [address] PAIN MANAGEMENT CONSULTATION Name: RK NARANJO Room #: REG CLVan Felix#: [id number] Admission: 03/01/21 Attend Phys: Rk Zuniga DO Discharge: Date of : 43 Report #: [id number] The patient tolerated the procedure well and carefully escorted to recovery room in stable condition. No apparent complications. After meeting discharge criteria, the patient discharged home. By: [id number] Rk Zuniga DO /ramon
[2021-03-01 10:54] VITALS: BP 139/79
== END | disposition home or self-care (01) ==
LOC: PAIN 06:55
PROVIDERS: ATTEND Anesthesiology Pain Medicine
DX: M47.27 Other spondylosis with radiculopathy, lumbosacral region (principal); M47.26 Other spondylosis with radiculopathy, lumbar region; G89.29 Other chronic pain; M19.90 Unspecified osteoarthritis, unspecified site; Z98.890 Other specified postprocedural states; Z79.899 Other long term (current) drug therapy; Z88.0 Allergy status to penicillin

== ENCOUNTER → 2021-03-08 | Outpatient (CLI) | payer OTHER | LOC: ULTRA 10:44 | PROVIDERS: ATTEND Urology | DX: N28.1 Cyst of kidney, acquired (principal); N13.30 Unspecified hydronephrosis ==

== ENCOUNTER → 2021-03-24 | Outpatient (CLI) | payer OTHER ==
[2021-03-24 11:17] LABS: CREATININE 1.5 mg/dL (0.7-1.3)
== END ==
LOC: CAT 09:12
PROVIDERS: ATTEND Urology
DX: N28.1 Cyst of kidney, acquired (principal); N28.89 Other specified disorders of kidney and ureter

== ENCOUNTER → 2021-03-30 | Outpatient (CLI) | payer OTHER ==
[~2021-03-30] VITALS: Ht 193 cm; Wt 111.9 kg
[~2021-03-30] MED LIST changes: +FLEXERIL PO; +NABUMETONE 500500 M2 PO; +NEURONTIN300 MG PO
--- NOTE | ~2021-03-30 | HPC ---
[facility] [place] [address] PAIN MANAGEMENT CONSULTATION Name: RK NARANJO LICO [id number] Admission: 03/30/21 Attend Phys: Rk Zuniga DO Discharge: Date of : 43 Report #: [id number] THIS REPORT FOR: cc: Tucker Esteban MD, Neal A. MD Johnson, James E. DO ~ cc: Tucker Esteban MD DATE OF SERVICE: 03/30/2021 CHIEF COMPLAINT: Right axial back pain. HISTORY OF PRESENT ILLNESS: As you know, the patient is a very pleasant 75-year-old male, who was recently seen back in our clinic on 03/01/2021, undergoing a right paramedian epidural steroid injection at the L3 level with complete resolution of his symptoms and ongoing 50% improvement overall after the symptoms began to recur without inciting injury or trauma. The patient was returning today to discuss the possibility of undergoing next in the series of right paramedian epidural injections at the L3 level when it was noted that the patient had been followed by another pain clinic. We calculated out the patient's steroid exposure over the past of 4-1/2-5 months and that is over 480 mg to date well over the recommended, no more than 287 in a 6-month period. At this point, we have had the patient return to discuss his options for treatment as steroid exposure cannot be provided again until which time his symptom has been able to recover from the excessive amount of steroid he has received to date. He is reporting pain today involving the right axial back at 7/10. ALLERGIES: PENICILLIN. CURRENT MEDICATIONS: None. SOCIAL HISTORY: The patient denies tobacco use. Denies IV or illicit drug use. Admits 2 alcohol beverages per week. He is accompanied by his , present in room today. IMAGING: No new imaging available. PQRS: The patient has known arthritic changes of lumbar spine, bilateral hips and knees. No rheumatoid arthritis. He is placing pain intensity of 7/10. He is not a fall risk, does not have a fall in last 3 months, not on blood thinners nor is he treated for hypertension. He is on no opioids and has a low opioid addiction potential based on assessment tool. Pain impact is 48 of 70, severe interference of daily activities secondary to pain. PHYSICAL EXAMINATION: VITAL SIGNS: Blood pressure 126/84, pulse 72, respiratory rate 16 and unlabored. The patient is 98% on room air, height 6 feet 4 inches tall, weight [facility] [address] [place] [address] PAIN MANAGEMENT CONSULTATION Name: RK NARANJO LICO Room #: REG [facility]#: [id number] Admission: 03/30/21 Attend Phys: Rk Zuniga DO Discharge: Date of : 43 Report #: [id number] 246.8 pounds, BMI calculated 30.1. GENERAL: Well-developed, well-nourished, well-hydrated 75-year-old male, appearing stated age, placing current pain score 7/10. HEENT: Normocephalic, atraumatic. He is wearing a mask in compliance with COVID-19 regulations and hospital requirements. He is wearing hearing aids and hearing is decreased bilaterally. EXTREMITIES: Show no clubbing, no cyanosis, no edema. MUSCULOSKELETAL: Muscle bulk and tone remain symmetrical in lower extremities. He has a well-healed surgical scar over the lumbar spine consistent with the fusion he has had in the past. Jennifer's test is negative. Lumbar provocation testing met with increasing right axial back pain with radiation towards the right flank. Seated straight leg raising negative. Supine straight leg raising negative. ASSESSMENT: 1. Lumbar radiculopathy. 2. Severe facet arthropathy of the lumbar spine. 3. Lumbosacral spondylosis with radiculopathy. 4. Chronic right low back pain. 5. Chronic intractable pain. PLAN: 1. The patient returns today in followup visit and having undergone a right paramedian epidural injection at the L3 level with 100% improvement in overall pain lasting for up to a couple of weeks. Unfortunately, his symptoms did begin to reoccur, but only to a 50% level of his previous visits. He states the sharp sensations have completely resolved as have the shooting electrical like sensations. He continues to experience axial back pain for which he places pain, no greater than 7/10 depending on activity. He returns today to discuss treatment options. The patient and I did discuss his recent steroid exposure to excessive amounts of steroid. He was receiving treatment at another pain clinic through the [employer] system where he has received 480 mg of steroid in a 4-1/2 month period well over recommended no greater than 287 mg in a 6-month period. This precludes us from being able to provide this patient any further steroid exposure for at least the next 2 months. I have discussed this with the patient today. It is unfortunate that the treatment that he received at [facility] did not provide him benefit. The fact that he has had this month steroid does preclude us from allowing him to have further steroid exposure at this time. The patient was advised of this today. 2. The patient and I discussed at length that he would like a referral for a neurosurgical consultation. We will be sending the patient to see Dr. Quiana Parr. The patient was advised to take all of his digital imaging with him from previous screening. I have also advised the patient to let Dr. Parr know that the injection we provided most recently is the only injection has been beneficial to date. His symptoms are not myofascial in origin, but appeared to [facility] [address] [place] [address] PAIN MANAGEMENT CONSULTATION Name: RK NARANJO Room #: REG [facility]#: [id number] Admission: 03/30/21 Attend Phys: Rk Zuniga DO Discharge: Date of : 43 Report #: [id number] be atypical lumbar radicular symptoms given the response he had to the injection provided on 03/01/2021. 3. The patient will be started on nabumetone for baseline anti-inflammatory effects. I have given the patient 500 mg tablets, sent to his local pharmacy to take 3 times a day with meals. He will watch for dyspepsia, worsening of blood pressure, lower extremity edema with use of medication. If he notes those side effects, discontinue immediately. Prescription was sent via e-scribe. 4. The patient was given a refill of cyclobenzaprine 10 mg dose 1 tab p.o. b.i.d. p.r.n. muscle spasms, given the patient #60 tablets with refills as necessary. Prescription sent via e-scribe to local pharmacy. I have advised the patient not drive or operate heavy equipment while on medication. 5. The patient was provided a prescription of gabapentin 300 mg tablets. He will begin 1 tab p.o. at bedtime for 3 nights, then 2 tabs p.o. at bedtime for 3 nights, then 3 tabs p.o. at bedtime for 3 nights. If no improvement in symptoms, no side effects of sleepiness, disorientation, confusion, mental slowing, then increase to 4 tabs p.o. at bedtime. He will continue this titration reaching 4 tabs in the morning, 4 tabs at night. The patient was advised anytime during the titration, he notes improvement in symptoms, stabilize at that dose, no further escalation. If he notes side effects, reduce to the dose prior, continue the medication, and contact our clinic. The prescription for #180, 300 mg tablets of gabapentin sent to local pharmacy. 6. We will see the patient back in followup visit on an as needed basis for medication management. We plan to see him back in 2 months for a possible injection. He will be following up with Dr. Quiana Parr from a neurosurgical standpoint and keep us apprised of the discussion and treatment options provided. By: [id number] Rk Zuniga DO /ramon
[2021-03-30 08:49] VITALS: BP 126/84
--- NOTE | 2021-03-30 09:06 | NUR ---
Pain Clinic Assessment: 1. History of Osteoarthritis: HIPS SPINE History of Rheumatoid Arthritis: Not Applicable 2. Height: 6 ft. 4 in. 193.0 cm. Weight: 246.8 lb. oz. 111.948 kg. Patient's BMI: 30.1 3. Vital Signs: BP: 126/84 Pulse: 72 Resp: 16 Temp: 02 Sat: 98 ECG Mon: 4. Pain Intensity: 7 5. Fall Risk: Dizziness: N Needs help standing or walking: N Fallen in the last 3 months: N Fall risk comments: 6. Patient on Blood Thinner: None 7. History of Hypertension: N 8. Opioid Therapy greater than 6 weeks: N Opiate Contract Signed: 9. Risk Assessment Tool Provided: 0-LOW RISK 10. Functional Assessment Tool: 11. Recreational Drug Use: Never Drug Type: Tobacco Use: Never Smoker Tobacco Type: Amount or Packs/day: How Many Years: Alcohol Use: Yes Frequency: Quant:
== END ==
LOC: PAIN 06:44
PROVIDERS: ATTEND Anesthesiology Pain Medicine
DX: M47.26 Other spondylosis with radiculopathy, lumbar region (principal); M47.27 Other spondylosis with radiculopathy, lumbosacral region; G89.29 Other chronic pain; Z88.0 Allergy status to penicillin

== ENCOUNTER → 2021-05-11 | Outpatient (CLI) | payer OTHER | LOC: RAD 13:51 | DX: M47.816 Spondylosis without myelopathy or radiculopathy, lumbar region (principal); M43.26 Fusion of spine, lumbar region; M25.78 Osteophyte, vertebrae; G95.89 Other specified diseases of spinal cord ==

== ENCOUNTER → 2021-06-14 | Outpatient (CLI) | payer OTHER ==
[~2021-06-14] VITALS: Ht 193 cm; Wt 114.3 kg
[2021-06-14 10:23] VITALS: BP 116/79
--- NOTE | 2021-06-14 10:41 | NUR ---
Pain Clinic Assessment: 1. History of Osteoarthritis: HIPS SPINE History of Rheumatoid Arthritis: Not Applicable 2. Height: 6 ft. 4 in. 193.0 cm. Weight: 252.0 lb. oz. 114.307 kg. Patient's BMI: 30.7 3. Vital Signs: BP: 116/79 Pulse: 81 Resp: 20 Temp: 02 Sat: 98 ECG Mon: 4. Pain Intensity: 7 TO 8 5. Fall Risk: Dizziness: Y Needs help standing or walking: N Fallen in the last 3 months: N Fall risk comments: 6. Patient on Blood Thinner: None 7. History of Hypertension: N 8. Opioid Therapy greater than 6 weeks: N Opiate Contract Signed: 9. Risk Assessment Tool Provided: 0-LOW RISK 10. Functional Assessment Tool: 11. Recreational Drug Use: Never Drug Type: Tobacco Use: Never Smoker Tobacco Type: Amount or Packs/day: How Many Years: Alcohol Use: Yes Frequency: Weekly Quant: 1
--- NOTE | 2021-06-15 09:44 | HPC ---
[address] [address] PAIN MANAGEMENT CONSULTATION Name: RK NARANJO [facility] [id number] Admission: 06/14/21 Attend Phys: Rk Zuniga DO Discharge: Date of : 43 Report #: [id number] THIS REPORT FOR: cc: Tucker Esteban MD,Rk Marie MD, DO ~ cc: Tucker Esteban MD, Quiana Parr MD DATE OF SERVICE: 06/14/2021 REFERRING PHYSICIAN: Tucker Esteban MD CHIEF COMPLAINT: Right axial back pain. HISTORY OF PRESENT ILLNESS: As you know, the patient is a very pleasant 75-year-old male who returns today in followup visit per the request of his Neurosurgery Team to undergo an epidural injection under fluoroscopic guidance. The patient reports the injection provided in 02/2021 gave excellent improvement in symptoms, near complete resolution of pain lasting for days. Unfortunately, his symptoms recurred though the patient was extremely active. He sought evaluation through Neurosurgery who has advised the patient that they recommended a CT myelogram to be performed before looking toward surgical options. The patient is resistant to undergo the CT myelogram, wants to discuss that with us today. He also wants to undergo a lumbar epidural injection under fluoroscopic guidance similar to the injection, we provided in February in hopes of obtaining long-term benefit. The patient denies injury or trauma that may have led to symptom reoccurrence. There have been no changes in his medication management that would preclude the patient from undergoing the epidural injection requested today. ALLERGIES: No known drug allergies. CURRENT MEDICATIONS: None. SOCIAL HISTORY: The patient denies tobacco use. Denies IV or illicit drug use. Admits 2 alcohol beverages per week. He is accompanied by his , present in room today. IMAGING: No new imaging is available. PQRS: The patient has known arthritic changes of lumbar spine, bilateral hips and knees. No rheumatoid arthritis. He is placing pain intensity today at around 7-8/10. He is not a fall risk, has not had a fall in last 3 months. He is not on blood thinners nor is he treated for hypertension. He is not on any opioids, has a low opioid addiction potential based on assessment tool. Pain impact is 48/70, moderate to severe interference of daily activities secondary to pain. [address] [address] PAIN MANAGEMENT CONSULTATION Name: NARANJORK LICO [facility]: [facility] [id number] Admission: 06/14/21 Attend Phys: Rk Zuniga DO Discharge: Date of : 43 Report #: [id number] PHYSICAL EXAMINATION: VITAL SIGNS: Blood pressure 116/79, pulse is 81, respiratory rate 20, unlabored. The patient 98% on room air, height 6 feet 4 inches tall, weight 252 pounds, BMI calculated 30.7. GENERAL: Well-developed, well-nourished, well-hydrated 75-year-old male appearing stated age, pain is rated up to 7-8/10. HEENT: Normocephalic, atraumatic. Pupils equal, round and responsive. He is wearing a mask in compliance with COVID-19 regulations. EXTREMITIES: Show no clubbing, no cyanosis. No appreciable edema. MUSCULOSKELETAL: Lower extremity strength appears symmetrical 5/5, intact to light touch from L1 through S2 dermatomes. Seated straight leg raising negative. Supine straight leg raising negative. There is some palpatory tenderness over the right axial back, well-healed surgical scar. ASSESSMENT: 1. Chronic right low back pain. 2. Severe facet arthropathy of lumbar spine. 3. Lumbar radiculopathy. 4. Lumbosacral spondylosis with radicular symptoms. 5. Chronic intractable pain. PLAN: 1. The patient has returned today in followup visit per the request of his neurosurgeon, Dr. Quiana Parr to undergo a lumbar epidural injection under fluoroscopic guidance. The patient reports the 03/01/2021 injection provided excellent benefit and he wishes to undergo a similar procedure. The patient and I discussed that procedure today. We discussed the risks and benefits. He states he understood and wished to proceed. 2. No medication changes made at today's visit. The patient has discontinued the nabumetone and the gabapentin as he believes this was the source of his dizziness. Interestingly enough, the patient's dizziness continues though he has been off the medication for an extended period of time. I have advised the patient to follow up with his PCP in regards to this dizziness as it is not medication related. 3. We will see the patient back in followup visit on an as needed basis for the next in the series of injections. PROCEDURE NOTE. DESCRIPTION OF PROCEDURE: Right paramedian epidural steroid injection under fluoroscopic guidance. After obtaining written consent, the patient was taken back to fluoroscopy suite, placed in prone position pillow under abdomen to decrease lumbar lordosis. Skin overlying lumbosacral area prepped and draped in aseptic [address] [address] PAIN MANAGEMENT CONSULTATION Name: RK NARANJO Room #: REG KYLE Felix#: [id number] Admission: 06/14/21 Attend Phys: Rk Zuniga DO Discharge: Date of : 43 Report #: [id number] fashion. Lumbar intervertebral spaces were identified by AP fluoroscopy. Skin and subcutaneous tissue overlying target site injection anesthetized with 3 mL 1% lidocaine. A 20 gauge 3-1/2 inch Tuohy needle advanced under fluoroscopic guidance towards the epidural space using a right paramedian approach. Epidural space was identified under fluoroscopy. Needle was advanced to the epidural space utilizing a loss of resistance to air technique. After negative aspiration for heme or cerebrospinal fluid, 1 mL of Omnipaque injected. A lumbar epidurogram was confirmed using both AP and lateral fluoroscopy. After negative aspiration for heme or cerebrospinal fluid, 5 mL of a solution containing 2 mL 40 mg per mL 80 mg total triamcinolone along with 3 mL of lidocaine, 1% injected slowly. Needle retracted care home flushed with 1 mL of 1% lidocaine and removed. Sterile bandage placed over injection site. No new motor deficits present in lower extremities following procedure. The patient tolerated the procedure well, carefully escorted to recovery room in stable condition. No apparent complications. After meeting discharge criteria, the patient discharged home. <ELECTRONICALLY SIGNED> By: Rk Zuniga DO 06/15/21 0944 [id number] Rk Zuniga DO /nt
== END | disposition home or self-care (01) ==
LOC: PAIN 09:31
PROVIDERS: ATTEND Anesthesiology Pain Medicine
DX: M47.27 Other spondylosis with radiculopathy, lumbosacral region (principal); M47.26 Other spondylosis with radiculopathy, lumbar region; M54.59 Other low back pain; G89.29 Other chronic pain; Z98.890 Other specified postprocedural states; Z79.899 Other long term (current) drug therapy; Z88.0 Allergy status to penicillin; Z88.8 Allergy status to other drugs, medicaments and biological substances